=== PATIENT | male | born 1985 | race Caucasian/White ===

== ENCOUNTER 2019-04-01 02:09 | Emergency (ER) | payer OTHER ==
[~2019-04-01] VITALS: Ht 180.3 cm; Wt 99.8 kg
[2019-04-01 02:10] VITALS: BP 130/85
--- NOTE | 2019-04-01 02:25 | NUR ---
PT AMBULATED TO ROOM 7 WITH STEADY GAIT.
--- NOTE | 2019-04-01 02:28 | NUR ---
PT 33 Y/O MALE BIB SELF FOR C/O PAINFUL URINATION AND 8/10 PAIN RADIATING TO BOTH FLANKS. PT STATES URINE IS BRIGHT RED IN COLOR. PT STATES HE ALSO HAD A FEVER X 3 DAYS AND HAS BEEN TAKING TYLENOL FOR FEVER/PAIN WITHOUT RELIEF. PT DENIED N/V/D. PT DENIES COUGH. RESPIRATIONS ARE EVEN AND UNLABORED. SKIN IS WARM AND DRY TO TOUCH. BED IN LOWEST POSITION AND LOCKED. PT LEFT RESTING IN BED SITTING UPRIGHT. MEDHX: NONE ALLERGIES: NKA
[2019-04-01] MEDS ORDERED: cefTRIAXone 250 MG in LIDOCAINE MPF 1% 0.9 ML IM ONE (02:50)
[2019-04-01] MEDS ORDERED: AZITHROMYCIN 250 MG TAB PO ONE (02:50)
[2019-04-01] MEDS ORDERED: cefTRIAXone 250 MG VIAL ONE (02:58)
[2019-04-01] MEDS ORDERED: LIDOCAINE MPF 1% 5 ML ONE (02:59)
--- NOTE | 2019-04-01 03:15 | NUR ---
PT RESTING UPRIGHT IN BED. PT RESPIRATIONS ARE EVEN AND UNLABORED. SKIN IS WARM AND DRY TO TOUCH. PT BROTHER AT BEDSIDE. PT CONTINUES TO HAVE C/O FLANK PAIN ON R AND L SIDE 08/30. PT BED IN LOWEST POSITION AND LOCKED IN PLACE.
[2019-04-01 03:21] LABS: APPEARANCE,URINE CLOUDY (CLEAR); BILIRUBIN,URINE 1+ (NEGATIVE); BLOOD, URINE 2+ (NEGATIVE); COLOR,URINE YELLOW (YELLOW); LEUKOCYTE ESTERASE ,URINE 2+ (NEGATIVE); NITRITE, URINE NEGATIVE (NEGATIVE); UGLUCOSE NEGATIVE (NEGATIVE)
[2019-04-01 03:34] LABS: RBC,URINE TOO NUMEROUS TO COUN /HPF (0-5); WBC,URINE TOO MANY TO COUNT /HPF (0-5)
[2019-04-01 03:55] VITALS: BP 130/85
--- NOTE | 2019-04-01 03:55 | NUR ---
Patient discharged with v/s stable. Written and verbal after care instructions given and explained. Patient alert, oriented and verbalized understanding of instructions. Ambulatory with steady gait. All questions addressed prior to discharge. ID band removed. Patient advised to follow up with PMD. Rx of PENICILLIN given. Patient educated on indication of medication including possible reaction and side effects. Opportunity to ask questions provided and answered.
[2019-04-03 07:52] LABS: CHLAMYDIA TRACHOMATIS AMP DNA Positive (Negative)
== END 2019-04-01 03:55 | disposition home or self-care (01) ==
LOC: MED 02:09
DX: N39.0 Urinary tract infection, site not specified (principal)
CPT/HCPCS: 36415; 81001; 87086; 87491; 96372; 99283; J0696; J2001

== ENCOUNTER 2023-03-30 12:30 | Emergency (ER) | payer OTHER, MEDICAID ==
[~2023-03-30] VITALS: Ht 175.3 cm; Wt 99.8 kg
[2023-03-30 12:46] VITALS: BP 132/76; PULSE 89; RESP 18; TEMP 98; O2SAT 98
[2023-03-30 13:14] VITALS: BP 132/76; PULSE 89; RESP 18; TEMP 98; O2SAT 98
== END 2023-03-30 13:24 | disposition home or self-care (01) ==
LOC: MED 12:30
DX: S13.4XXA Sprain of ligaments of cervical spine, initial encounter (principal); S33.5XXA Sprain of ligaments of lumbar spine, initial encounter; V43.62XA Car passenger injured in collision with other type car in traffic accident, initial encounter; Y93.89 Activity, other specified; Y92.410 Unspecified street and highway as the place of occurrence of the external cause; Y99.8 Other external cause status
CPT/HCPCS: 99282